=== PATIENT | female | born 1950 | race Caucasian/White ===

== ENCOUNTER 2021-01-21 12:33 | Observation (INO) | payer OTHER, MEDICARE ==
[2021-01-21] MEDS: Sodium Chloride 0.9% 1,000 ML IV SCH (13:15)
[2021-01-21 13:18] LABS: PTT,PARTIAL THROMBOPLSTIN TIME 24.1 SEC (25.6-32.8)
[2021-01-21 13:27] LABS: CHLORIDE,CL 106 mmol/L (98-107); SODIUM,NA 141 mmol/L (136-145)
[2021-01-21 13:28] LABS: ANION GAP 14.8 mmol/L (5-15)
--- NOTE | 2021-01-21 13:40 | CT ---
[id number] CT/CTA Chest EXAM: CTA Chest CLINICAL DATA: CHEST PAIN, SYNCOPE, DIAPHORESIS COMPARISON STUDY: None. FINDINGS: Lungs: Apical predominant parenchymal emphysema with scattered areas of pleural-parenchymal scarring in both lungs. Bilateral central and symmetric lower lobe predominant peribronchial thickening. Mild granulomatous change in the lungs. Negative for pneumonia. No pleural effusion or pneumothorax. Mediastinum: No mediastinal or hilar lymphadenopathy. Heart and great vessels: Heart is normal in size. No pericardial effusion. Thoracic aorta is normal in caliber. Pulmonary arteries are normal in caliber. Negative for pulmonary embolus. Bones: No acute fracture or compression deformity. Spondylosis. Upper abdomen: Unremarkable. IMPRESSION: Negative for pulmonary embolus or other acute cardiopulmonary findings. Chronic findings are described above Macario Cohen MD 01/21/21 [id number] Thank you for allowing us to participate in the care of your patient.
--- NOTE | 2021-01-21 14:23 | EDM.PDOC ---
ED HPI GENERAL MEDICAL PROBLEM - General Time Seen by Provider: 01/21/21 12:33 Source of Information: Reports: Patient, EMS History Limitations: Reports: No Limitations - History of Present Illness INITIAL COMMENTS - FREE TEXT/NARRATIVE: Pt. had a syncopal episode today at home. It was a witnessed event. It only lasted about a minute. She was sitting on the stairs when the event happened. EMS was summoned. On arrival to ER, pt. was alert and able to answer questions. She was wearing multiple layers of clothing and was diaphoretic on scene. Pt. states that she has never had symptoms like this in the past. She denies any substernal chest pain or shortness or breath. She complained of feeling "uncomfortable" on arrival to ER, stating she has mid upper back pain. Denies any recent illness. No fever or chills. No nausea, vomiting, or diarrhea. Denies any current lightheadedness, abdominal pain, nausea, or vomiting. No cough or chest congestion. No sore throat or rhinorrhea. Onset: Today Onset Date: 01/21/21 Location: Reports: Generalized - Related Data Allergies Allergy/AdvReac Type Severity Reaction Status Date / Time codeine Allergy Other Verified 01/21/21 12:38 ED ROS GENERAL - Review of Systems Review Of Systems: See Below Constitutional: Reports: No Symptoms HEENT: Reports: No Symptoms Respiratory: Reports: No Symptoms Cardiovascular: Reports: Syncope, Other (complains of mid back pain) Endocrine: Reports: No Symptoms GI/Abdominal: Reports: No Symptoms : Reports: No Symptoms Musculoskeletal: Reports: No Symptoms Skin: Reports: No Symptoms Neurological: Reports: No Symptoms Psychiatric: Reports: No Symptoms Hematologic/Lymphatic: Reports: No Symptoms Immunologic: Reports: No Symptoms ED EXAM, GENERAL - Physical Exam Exam: See Below Exam Limited By: No Limitations General Appearance: Alert, WD/WN, No Apparent Distress Throat/Mouth: Normal Inspection, Normal Lips, Normal Oropharynx, Normal Voice, No Airway Compromise Head: Atraumatic, Normocephalic Neck: Normal Inspection, Supple, Non-Tender, Full Range of Motion Respiratory/Chest: No Respiratory Distress, Lungs Clear, Normal Breath Sounds, No Accessory Muscle Use, Chest Non-Tender Cardiovascular: Normal Peripheral Pulses, Regular Rate, Rhythm, No Edema, No JVD, No Murmur, No Rub Peripheral Pulses: 4+: Brachial (L) GI/Abdominal: Soft, Non-Tender, No Distention, No Mass (Female) Exam: Deferred Rectal (Female) Exam: Deferred Back Exam: Normal Inspection, Full Range of Motion Extremities: Normal Inspection, Normal Range of Motion, Non-Tender, No Pedal Edema, Normal Capillary Refill Neurological: Alert, Oriented, CN II-XII Intact, Normal Cognition, Normal Gait, Normal Reflexes, No Motor/Sensory Deficits Psychiatric: Flat Affect, Other (Upset that she is in the ER, resistive to providing an ROS/discuss current symptoms.) Skin Exam: Warm, Dry, Intact, Normal Color, No Rash #1 Interpretation Rhythm: NSR [place]: Normal P-Wave: Present QRS: Normal ST-T: Normal QT: Normal EKG Interpretation Comments: No EKG for comparison. Was faxed to [facility] [address] call and reviewed by Dr. Lechuga who noted some acute changes necessitating transfer. Course - Orders/Labs/Meds Orders: Active Orders 24 hr Category Date Time Status EKG Documentation Completion [RC] STAT Care 01/21/21 12:39 Active Sodium Chloride 0.9% [Normal Saline] 1,000 ml Med 01/21/21 13:15 Active IV ASDIRECTED Sodium Chloride 0.9% [Saline Flush] Med 01/21/21 12:40 Active 10 ml FLUSH ASDIRECTED PRN Peripheral IV Insertion Adult [OM.PC] Routine Oth 01/21/21 12:40 Ordered Medication Orders Sodium Chloride (Normal Saline) 1,000 mls @ 1,000 mls/hr IV ASDIRECTED KARMEN Heparin Sodium/Sodium Chloride (Heparin 25,000 Units In 1/2 Ns 500 Ml) 25,000 units in 500 mls @ 20 mls/hr IV TITRATE KARMEN; Protocol Nitroglycerin/Dextrose (Nitroglycerin 25 Mg/D5w 250 Ml) 25 mg in 250 mls @ 6 mls/hr IV TITRATE KARMEN; Protocol Sodium Chloride (Sodium Chloride 0.9% 10 Ml Syringe) 10 ml FLUSH ASDIRECTED PRN PRN Reason: Keep Vein Open Last Admin: 01/21/21 15:56 Dose: 10 ml Documented by: CARMEN Labs: Laboratory Tests 01/21/21 01/21/21 01/21/21 Range/Units 12:36 12:48 12:48 WBC 9.1 (4.0-10.0) x10^3/uL RBC 5.02 (4.00-5.50) x10^6/uL Hgb 15.7 (12.0-16.0) g/dL Hct 45.6 (33.0-47.0) % MCV 90.8 (78.0-93.0) fL MCH 31.3 (26.0-32.0) pg MCHC 34.4 (32.0-36.0) g/dL RDW Coeff of [place]ivid[place] 12.1 (10.0-15.0) % Plt Count 308 (130-400) x10^3/uL Immature Gran % (Auto) 0.20 (0.00-0.43) % Neut % (Auto) 58.4 (50.0-80.0) % Lymph % (Auto) 29.1 (25.0-50.0) % [place] % (Auto) 7.2 (2.0-11.0) % Eos % (Auto) 4.4 H (0.0-4.0) % Baso % (Auto) 0.7 (0.2-1.2) % Neut # (Auto) 5.3 (1.8-7.7) x10^3/uL Lymph # (Auto) 2.7 (1.0-4.8) x10^3/uL [place] # (Auto) 0.7 (0.0-0.8) x10^3/uL Eos # (Auto) 0.4 (0.0-0.5) x10^3/uL Baso # (Auto) 0.1 (0.0-0.2) x10^3/uL Immature Gran # (Auto) 0.02 (0.00-0.07) x10^3/uL PT 10.5 (9.9-12.5) SEC INR 0.9 L (2.0-3.5) APTT 24.1 L (25.6-32.8) SEC D-Dimer, Quantitative 1.11 H (<=0.58) mg/LFEU Sodium (136-145) mmol/L Potassium (3.5-5.1) mmol/L Chloride (98-107) mmol/L Carbon Dioxide (21-32) mmol/L Anion Gap (5-15) mmol/L BUN (7-18) mg/dL Creatinine (0.55-1.02) mg/dL Est Cr Clr Drug Dosing Estimated GFR (MDRD) Glucose (70-99) mg/dL POC Glucose 117 H (70-99) mg/dL Calcium (8.5-10.1) mg/dL Corrected Calcium (8.5-10.1) mg/dL Phosphorus (2.6-4.7) mg/dL Magnesium (1.8-2.4) mg/dL Total Bilirubin (0.2-1.0) mg/dL AST (15-37) U/L ALT (14-59) U/L Alkaline Phosphatase (46-116) U/L Troponin I High Sens (<=51) ng/L C-Reactive Protein (<=0.9) mg/dL NT-Pro-B Natriuret Pep (<=125) pg/mL Total Protein (6.4-8.2) g/dL Albumin (3.4-5.0) g/dL Globulin Albumin/Globulin Ratio TSH, Ultra Sensitive (0.358-3.74) uIU/mL 01/21/21 Range/Units 12:48 WBC (4.0-10.0) x10^3/uL RBC (4.00-5.50) x10^6/uL Hgb (12.0-16.0) g/dL Hct (33.0-47.0) % MCV (78.0-93.0) fL MCH (26.0-32.0) pg MCHC (32.0-36.0) g/dL RDW Coeff of [place] (10.0-15.0) % Plt Count (130-400) x10^3/uL Immature Gran % (Auto) (0.00-0.43) % Neut % (Auto) (50.0-80.0) % Lymph % (Auto) (25.0-50.0) % [place] % (Auto) (2.0-11.0) % Eos % (Auto) (0.0-4.0) % Baso % (Auto) (0.2-1.2) % Neut # (Auto) (1.8-7.7) x10^3/uL Lymph # (Auto) (1.0-4.8) x10^3/uL [place] # (Auto) (0.0-0.8) x10^3/uL Eos # (Auto) (0.0-0.5) x10^3/uL Baso # (Auto) (0.0-0.2) x10^3/uL Immature Gran # (Auto) (0.00-0.07) x10^3/uL PT (9.9-12.5) SEC INR (2.0-3.5) APTT (25.6-32.8) SEC D-Dimer, Quantitative (<=0.58) mg/LFEU Sodium 141 (136-145) mmol/L Potassium 3.8 (3.5-5.1) mmol/L Chloride 106 (98-107) mmol/L Carbon Dioxide 24 (21-32) mmol/L Anion Gap 14.8 (5-15) mmol/L BUN 13 (7-18) mg/dL Creatinine 1.1 H (0.55-1.02) mg/dL Est Cr Clr Drug Dosing TNP Estimated GFR (MDRD) 49 Glucose 121 H (70-99) mg/dL POC Glucose (70-99) mg/dL Calcium 9.0 (8.5-10.1) mg/dL Corrected Calcium 9.1 (8.5-10.1) mg/dL Phosphorus 3.7 (2.6-4.7) mg/dL Magnesium 2.2 (1.8-2.4) mg/dL Total Bilirubin 0.4 (0.2-1.0) mg/dL AST 16 (15-37) U/L ALT 19 (14-59) U/L Alkaline Phosphatase 85 (46-116) U/L Troponin I High Sens 63 H* (<=51) ng/L C-Reactive Protein 0.3 (<=0.9) mg/dL NT-Pro-B Natriuret Pep 457 H (<=125) pg/mL Total Protein 7.4 (6.4-8.2) g/dL Albumin 3.9 (3.4-5.0) g/dL Globulin 3.5 Albumin/Globulin Ratio 1.11 TSH, Ultra Sensitive 3.712 (0.358-3.74) uIU/mL Meds: Medications Generic Name Dose Route Start Last Admin Trade Name Freq PRN Reason Stop Dose Admin Sodium Chloride 1,000 mls @ 1,000 mls/hr 01/21/21 13:15 Normal Saline IV ASDIRECTED KARMEN Heparin Sodium/Sodium Chloride 25,000 units in 500 mls @ 20 mls/hr 01/21/21 16:00 Heparin 25,000 Units In 1/2 Ns 500 Ml IV TITRATE KARMEN Protocol 1,000 UNITS/HR Nitroglycerin/Dextrose 25 mg in 250 mls @ 6 mls/hr 01/21/21 16:00 Nitroglycerin 25 Mg/D5w 250 Ml IV TITRATE KARMEN Protocol 10 MCG/MIN Sodium Chloride 10 ml 01/21/21 12:40 01/21/21 15:56 Sodium Chloride 0.9% 10 Ml Syringe FLUSH 10 ml ASDIRECTED PRN Administration Keep Vein Open Discontinued Medications Generic Name Dose Route Start Last Admin Trade Name Freq PRN Reason Stop Dose Admin Aspirin 324 mg 01/21/21 15:39 01/21/21 15:52 Aspirin 81 Mg Tab.Chew PO 01/21/21 15:40 324 mg ONETIME ONE Administration Heparin Sodium (Porcine) 1,000 units 01/21/21 15:38 Heparin Sodium 5,000 Units/Ml Vial IVPUSH 01/21/21 15:39 .BOLUS ONE Heparin Sodium (Porcine) 4,000 units 01/21/21 15:52 01/21/21 15:55 Heparin Sodium 5,000 Units/Ml Vial IVPUSH 01/21/21 15:53 4,000 units .BOLUS ONE Administration Heparin Sodium/Sodium Chloride 25,000 units in 500 mls @ 20 mls/hr 01/21/21 15:45 Heparin 25,000 Units In 1/2 Ns 500 Ml IV TITRATE KARMEN Protocol 1,000 UNITS/HR - Radiology Interpretation Free Text/Narrative:: CTA of chest obtained, negative for PE. No aneurysm. Departure - Departure Time of Disposition: 16:00 Disposition: DC/Tfer to Acute Hospital 02 Clinical Impression: ACS (acute coronary syndrome) - Discharge Information - Problem List Review Problem List Initiated/Reviewed/Updated: Yes - My Orders Last 24 Hours: My Active Orders 01/21/21 12:39 EKG Documentation Completion [RC] STAT 01/21/21 12:40 Sodium Chloride 0.9% [Saline Flush] 10 ml FLUSH ASDIRECTED PRN Peripheral IV Insertion Adult [OM.PC] Routine 01/21/21 13:15 Sodium Chloride 0.9% [Normal Saline] 1,000 ml IV ASDIRECTED - Assessment/Plan Last 24 Hours: My Active Orders 01/21/21 12:39 EKG Documentation Completion [RC] STAT 01/21/21 12:40 Sodium Chloride 0.9% [Saline Flush] 10 ml FLUSH ASDIRECTED PRN Peripheral IV Insertion Adult [OM.PC] Routine 01/21/21 13:15 Sodium Chloride 0.9% [Normal Saline] 1,000 ml IV ASDIRECTED Plan: Pt. will be transferred to [facility]. She was accepted by Dr. Lechuga, electric deicer assembler at [place]. She will be transported via [facility] ground ambulance. Pt. was given aspirin 324mg PO. She was given heparin 4000u bolus and a 1000u/hr. drip. Pt. was started on a nitro drip. Pt. seems to think that the back pain is worse with palpation, but she did not have it before the event today, and there was no trauma to the area. Certainly the discomfort could be secondary to ACS, especially in a female.
[2021-01-21] MEDS ORDERED: Heparin Sodium/0.45% NaCl 25,000 UNITS/500 ML BAG IV SCH (15:45)
[2021-01-21] MEDS: Aspirin 81 MG Tab.Chew PO ONE (15:52)
[2021-01-21] MEDS: Heparin Sodium 5,000 Units/ML Vial IVPUSH ONE ×2 (15:55→16:01)
[2021-01-21] MEDS: Sodium Chloride 0.9% 10 ML Syringe FLUSH PRN (15:56)
[2021-01-21] MEDS: Nitroglycerin/D5W 25 MG/250 ML BOTTLE IV SCH (16:14)
[2021-01-21] MEDS: Heparin Sodium/0.45% NaCl 25,000 UNITS/500 ML BAG IV SCH (16:18)
== END 2021-01-21 17:00 | disposition short-term general hospital (02) ==
LOC: VM.ED 12:33 → VM.MS 13:49
PROVIDERS: ADMIT Physician Assistant; ATTEND Physician Assistant
DX: R55 Syncope and collapse (principal); Z88.5 Allergy status to narcotic agent; Z20.822 Contact with and (suspected) exposure to COVID-19
CPT/HCPCS: 71275; 80053; 82947; 83735; 83880; 84100; 84443; 84484; 85025; 85379; 85610; 85730; 86140; 87635; 93005; 93010; 96374; 96375; 99284; 99285; A9270; G0378; J1644; J3490; J7030; 36415; U0002